=== PATIENT | male | born 1935 | race Caucasian/White ===

== ENCOUNTER 2018-05-15 07:31 | Day surgery (SDC) | payer MEDICARE, OTHER ==
[2018-05-15] MEDS ORDERED: Propofol 200 MG/20 ML SDV ONE (07:34)
[2018-05-15] MEDS ORDERED: fentaNYL 100 MCG/2 ML SDV ONE (07:34)
[2018-05-15] MEDS ORDERED: Midazolam 1 MG/ML 2 ML SDV ONE (07:34)
[2018-05-15] MEDS ORDERED: Dextrose 5%-Lactated Ringers 1,000 ML IV SCH (08:15)
[2018-05-15] MEDS ORDERED: Albuterol/Ipratropium 3.0-0.5 MG/3 ML Neb Soln NEB ONE (08:28)
[2018-05-15] MEDS ORDERED: Pantoprazole 40 MG Vial IVPUSH ONE (10:15)
--- NOTE | 2018-05-21 12:08 | OR ---
DATE OF PROCEDURE: 05/15/2018 PREOPERATIVE DIAGNOSIS: Iron-deficiency anemia. POSTOPERATIVE DIAGNOSES: 1. Focal erosive prepyloric gastritis (possible bleeding site, but no blood or bleeding seen today). 2. Colonoscopy showing. a. Single 2 cm polyp at 15 cm from dentate line (junction of the lower sigmoid colon and upper rectum). b. [place]-diverticulosis (no colorectal findings likely accounting for GI bleeding). OPERATIVE PROCEDURES: 1. Esophagogastroduodenoscopy with antral biopsies for CLOtest (63768). 2. Flexible colonoscopy with. a. Polypectomy by snare technique (37890). b. Injection of Kesha ink in submucosal colorectal wall at the site of polypectomy (55294). ANESTHESIA: IV sedation. INDICATION FOR PROCEDURE: This is an 83-year-old presenting with significant iron- deficiency anemia with hemoglobin in the 8 range. The plan is to proceed with upper and lower endoscopy to try to identify GI tract bleeding sites. Potential risks of the procedure including bleeding and perforation were discussed, and the patient wishes to proceed. DETAILS OF PROCEDURE: The patient was taken to the operating room and placed in a left lateral decubitus position. IV sedation was administered, after which the upper GI endoscope was passed orally through the length of the esophagus, then into the stomach with retroflexion view of the fundus, and thereafter through the pyloric channel, into the junction of the third and fourth portions of the duodenum. The upper GI findings included normal hypopharynx, larynx, upper esophageal sphincter, and esophageal body. No significant inflammation or hiatal hernia was noted at the EG junction. Within the stomach, there was some focal erosive gastritis. There were some scattered erosions present, which were presently covered with some fibrinous exudate. No blood or bleeding was seen. The pyloric channel and visualized portions of the duodenum were unremarkable. At this point, biopsies were obtained from the antrum and sent for CLOtest for H. pylori. Minimal bleeding from the biopsy site was seen. Procedure was then concluded. Attention was then taken to the colonoscopy. Initial digital rectal exam was performed and was unremarkable. Colonoscope was then passed into the rectum which revealed uncomplicated hemorrhoidal columns. The scope was then eventually passed to the level of the cecum. The prep was fairly good with there only being small amount of liquid stool present. Findings included fairly extensive [place]-diverticulosis, but none of these areas appeared to be complicated and would unlikely to have presented with bleeding of the type that would not be quite obvious. Apart from that, there was a single 2-cm polyp located around 15 cm from the dentate line near the junction of the sigmoid colon and rectum. Beyond that, there were no additional areas of neoplasia, no blood or bleeding, or areas of colitis. At this point, the polyp was encircled at its base and removed by means of cautery snare. Good hemostasis was noted. In the event this might be malignant, 2 mL of Kesha ink was then injected in the submucosal colorectal wall adjacent to the polypectomy site to help identify the specific location should a resection be required. At that point, no further problems were noted. The patient was taken to the recovery room in a satisfactory condition. At this point, the patient will be given Protonix IV in the recovery room and given a prescription for Protonix 40 mg daily, #30, refills x5; which will be called in to the Pharmacy. Follow up will be with Internal Medicine staff in [facility] in roughly 2 weeks. Andrew Abrams MD /[id number]
== END 2018-05-15 11:35 | disposition home or self-care (01) ==
LOC: JP.SDS 07:31
PROVIDERS: ATTEND Surgery
DX: D50.9 Iron deficiency anemia, unspecified (principal); D12.8 Benign neoplasm of rectum; K57.30 Diverticulosis of large intestine without perforation or abscess without bleeding; K29.70 Gastritis, unspecified, without bleeding; I11.0 Hypertensive heart disease with heart failure; I50.9 Heart failure, unspecified; J44.9 Chronic obstructive pulmonary disease, unspecified; E11.9 Type 2 diabetes mellitus without complications
CPT/HCPCS: 36415; 43239; 45381; 45385; 85610; 87081; 88305; C9113; J2250; J2704; J3010; J7042; J7620-GY